=== PATIENT | female | born 1960 | race Caucasian/White ===

== ENCOUNTER → 2016-04-04 | Outpatient (CLI) | payer OTHER | LOC: BMCIMAGING 08:29 | DX: Z12.31 Encounter for screening mammogram for malignant neoplasm of breast (principal) | CPT/HCPCS: G0202 ==

== ENCOUNTER → 2016-07-17 | Outpatient (CLI) | payer OTHER | LOC: BMCIMAGING 10:34 | PROVIDERS: ATTEND Internal Medicine Rheumatology | DX: M79.642 Pain in left hand (principal); M79.641 Pain in right hand ==

== ENCOUNTER → 2017-03-13 | Outpatient (CLI) | payer OTHER | LOC: FIMAGING 16:51 | PROVIDERS: ATTEND Family Medicine | DX: R10.9 Unspecified abdominal pain (principal) ==

== ENCOUNTER → 2017-06-01 | Outpatient (CLI) | payer OTHER ==
[~2017-06-01] MED LIST: GADOBUTROL 10 ML VIAL IVP ONE
== END ==
LOC: FIMAGING 14:24
PROVIDERS: ATTEND Family Medicine
DX: Z12.31 Encounter for screening mammogram for malignant neoplasm of breast (principal)
CPT/HCPCS: A9585

== ENCOUNTER → 2018-01-24 | Outpatient (CLI) | payer OTHER | LOC: BMCIMAGING 08:03 | PROVIDERS: ATTEND Family Medicine | DX: K83.8 Other specified diseases of biliary tract (principal); K76.0 Fatty (change of) liver, not elsewhere classified ==

== ENCOUNTER → 2018-02-19 | Outpatient (CLI) | payer OTHER ==
[~2018-02-19] MED LIST changes: -GADOBUTROL 10 ML VIAL IVP ONE; +IOPAMIDOL (ISOVUE 370) 100 ML BTL IV ONE
== END ==
LOC: FIMAGING 10:05
PROVIDERS: ATTEND Family Medicine
DX: R10.9 Unspecified abdominal pain (principal)
CPT/HCPCS: Q9967

== ENCOUNTER → 2018-06-10 | Outpatient (CLI) | payer OTHER | LOC: FIMAGING 11:44 | PROVIDERS: ATTEND Family Medicine | DX: R10.9 Unspecified abdominal pain (principal); R93.2 Abnormal findings on diagnostic imaging of liver and biliary tract | CPT/HCPCS: 78227; A9537 ==